=== PATIENT | female | born 1945 | race Caucasian/White ===

== ENCOUNTER 2018-04-23 13:06 | Outpatient (CLI) | payer MEDICARE, OTHER ==
[2018-04-23] MEDS ORDERED: ALBUTEROL NEB 2.5 MG/3 ML INH ONE (13:35)
== END 2018-04-23 13:07 | disposition home or self-care (01) ==
LOC: RT 13:06
PROVIDERS: ATTEND Specialist
DX: J06.9 Acute upper respiratory infection, unspecified (principal); B97.4 Respiratory syncytial virus as the cause of diseases classified elsewhere; R06.02 Shortness of breath; R53.83 Other fatigue
CPT/HCPCS: 94060; 94664; 94729

== ENCOUNTER 2023-07-25 08:22 | Day surgery (SDC) | payer MEDICARE, OTHER ==
[2023-07-25] MEDS: LACTATED RINGERS 1,000 ML IV ONE ×2 (08:25→09:47)
--- NOTE | 2023-07-25 09:03 | ANESTHESIA ---
Pre-Anesthesia VS, & Labs - Diagnosis FISSURES; PAIN - Procedure COLONOSCOPY Vital Signs: Temp Pulse Resp BP Pulse Ox O2 Flow Rate 36.3 C L 80 16 143/68 H 99 0 07/25/23 08:37 07/25/23 08:37 07/25/23 08:37 07/25/23 08:37 07/25/23 08:37 07/25/23 08:37 Height: 5 ft 4 in Weight (kg): 66 kg Body Mass Index: 25.0 BMI Classification: Overweight - NPO >8 hours - Is Patient ?: No Home Medications and Allergies Home Medications: Ambulatory Orders No Known Home Medications 07/24/23 No Known Home Medications 07/24/23 Allergies/Adverse Reactions: Allergies Allergy/AdvReac Type Severity Reaction Status Date / Time Iodinated Contrast Media Allergy Unknown Verified 07/24/23 13:50 levofloxacin [From Levaquin] Allergy Cramps Verified 07/24/23 13:50 Penicillins Allergy Rash Verified 07/24/23 13:50 Anes History & Medical History - Anesthetic History Anesthesia Complications: reports: No previous complications Family history of Anesthesia Complications: Denies Family history of Malignant Hyperthermia: Denies - Medical History Cardiovascular: reports: None Pulmonary: reports: None Gastrointestinal: reports: None Urinary: reports: None Neuro: reports: None Musculoskeletal: reports: None Endocrine/Autoimmune: reports: None Blood Disorders: reports: None Skin: reports: None Smoking Status: Never smoker Psychosocial: reports: No issues indicated History of Cancer?: No - Surgical History General: reports: Cholecystectomy Gynecologic: reports: Hysterectomy Results - EKG Results EKG Comparison: Reviewed EKG, Normal EKG Exam General: Alert, Oriented x3, Cooperative, No acute distress Dental: WNL Mouth Openin Fingerbreadth Neck Mobility: Normal Mallampati classification: I Thyromental Distance: 4-6 cm Respiratory: Lungs clear, Normal breath sounds, No respiratory distress, No accessory muscle use Cardiovascular: Regular rate, Normal S1, Normal S2, No murmurs Mental/Cognitive Status: Alert/Oriented X3, Normal for patient Cognitive Status: Within normal limits Plan Anesthesia Type: General Consent for Procedure(s) Verified and Reviewed: Yes Code Status: Attempt Resuscitation ASA classification: 2-Mild systemic disease Is this case an emergency?: No
[2023-07-25] MEDS ORDERED: LIDOCAINE-MPF 2% 5 ML VIAL ONE (09:05)
[2023-07-25] MEDS ORDERED: PROPOFOL 200 MG/20 ML VIAL IVP ONE (09:05)
[2023-07-25 10:36] VITALS: BP 100/49; O2SAT 100
--- NOTE | 2023-07-25 10:44 | ANESTHESIA POST OP EVALUATION ---
Anesthesia Post Eval - Post Anesthesia Eval Vitals: Last Vital Signs Temp 36.3 C L 07/25/23 10:10 Pulse 60 07/25/23 10:10 Resp 16 07/25/23 10:10 BP 100/49 L 07/25/23 10:10 Pulse Ox 100 07/25/23 10:10 O2 Flow Rate 0 07/25/23 08:37 CV Function Including HR & BP: Stable Pain Control: Satisfactory Nausea & Vomiting: Negative Mental Status: Baseline Respiratory Status: Airway Patent Hydration Status: Satisfactory Anesthesia Complications: None
== END 2023-07-25 08:23 | disposition home or self-care (01) ==
LOC: SDS 08:22
PROVIDERS: ATTEND Surgery
PROC: 0DBM8ZZ Excision of Descending Colon, Via Natural or Artificial Opening Endoscopic (ICD-10-PCS; principal; 2023-07-25 09:30)
DX: Z12.11 Encounter for screening for malignant neoplasm of colon (principal); D12.4 Benign neoplasm of descending colon; K57.30 Diverticulosis of large intestine without perforation or abscess without bleeding
CPT/HCPCS: 45380; J7120

== ENCOUNTER 2023-09-05 13:20 | Outpatient (CLI) | payer MEDICARE, OTHER ==
--- NOTE | 2023-09-05 17:04 | Ultrasound Report ---
PROCEDURE: Bladder INDICATIONS: INCOMPLETE BLADDER EMPTYING TECHNIQUE: Real-time scanning was performed of the bladder, with image documentation. COMPARISON: None FINDINGS: Bladder: Pre-void bladder volume is 109.7 mL. Post-void residual is 18.5 mL. Pre-void images demon strate no intraluminal masses or stones. On pre-void images, left ureteral jets are noted with color Doppler interrogation. (Of note, ureteral jets may not be detectable in up to 25% of cases due to i nsufficient differences in specific gravity between ureteral and bladder urine). Miscellaneous: No free pelvic fluid. IMPRESSION: Postvoid residual of 18.5 mL. Reviewed by: Rachelle Martinez MD on 09/05/2023 5:03 PM PDT Approved by: Rachelle Martinez MD on 09/05/2023 5:03 PM PDT Station ID: [id number]
== END 2023-09-05 13:21 | disposition home or self-care (01) ==
LOC: DI 13:20
PROVIDERS: ATTEND Internal Medicine
DX: R39.14 Feeling of incomplete bladder emptying (principal)